=== PATIENT | female | born 1985 | race Caucasian/White ===

== ENCOUNTER 2024-12-05 16:52 | Emergency (ER) | payer MEDICARE, OTHER, SELFPAY ==
[2024-12-05 16:54] VITALS: BP 127/92
--- NOTE | 2024-12-05 17:33 | ED.GENMED ---
History of Present Illness
General
Chief Complaint: Musculo-Skeletal Complaint
Time Seen by Provider: 12/05/24 17:12
History of Present Illness
History of Present Illness:
39-year-old female presents the emergency department for evaluation of left ankle pain after slipping and falling today. 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
undergo surgery next month at [facility]. She is able to bear weight using orthopedic boot
Past History
Past History
ED Past Medical History: Asthma (when sick), HTN (but not on any medication), Seizures and Other (Lyme disease, migraine headaches, Chronic pain, GI bleed, Hiatal hernia, Ulcers, Bartonella, PIC line)
ED Past Surgical History: None
Social History
Tobacco: Non-smoker
Alcohol: None
Personal: Single
Living: with family
Review of Systems
Review of Systems
Allergies reviewed?: Yes
All Other Systems: ROS reviewed and negative except as documented in HPI and ROS
Phy Exam
Physical Exam
Physical Exam:
GEN: Well appearing, NAD, WDWN
HEENT: Oral mucosa moist, no scleral icterus
Cardiac: Regular rate
Lung: No respiratory distress, no tachypnea
MSK: Moderate swelling to the left lateral ankle, normal range of motion, no crepitus
Skin: Good color, no pallor or jaundice, no rashes
Neuro: AO x3, moves all extremities freely
Psych: Calm, cooperative
Course
Orders/Labs/Results
Orders:
Orders
12/05/24 16:59
Ankle, left 3 view CR [CR Ankle - Left Min 3 Views ] Urgent
Comment:
Reason For Exam: pain and swelling
12/05/24 17:33
HYDROmorphone [Dilaudid] 4 mg PO NOW STA
Ondansetron Orally Disint [Zofran Odt (Orally Disintegrating)] 4 mg PO NOW STA
Vital Signs
Initial and Last Documented VS:
Initial Vital Signs
Temp Pulse Resp BP Pulse Ox
98.3 F 98 20 127/92 96
12/05/24 16:54 12/05/24 16:54 12/05/24 16:54 12/05/24 16:54 12/05/24 16:54
Last Documented Vital Signs
Temp Pulse Resp BP Pulse Ox
98.3 F 79 18 125/80 99
12/05/24 16:54 12/05/24 18:55 12/05/24 18:55 12/05/24 18:55 12/05/24 18:55
MDM/Problems Addressed
MDM/Problems Addressed:
X-rays are negative for acute fracture. Likely reaggravation of chronic injury. Recommend outpatient podiatry follow-up
*Pulse Oximetry
SaO2: 96
Oxygen Mode of Delivery: Room air
Patient hypoxic: no
*Critical Care Note
Total Time (30-74mins, 75-104mins- exclusive of procedures): Not Applicable
ED Attending Note
-
Portions of this chart may have been created with voice recognition software.� Occasional wrong word or��sound alike� substitutions may have occurred due to the inherent limitations of voice recognition software.
Discharge Plan
Departure
Patient Disposition: Home (Routine Discharge)
Date of Disposition: 12/05/24
Time of Disposition: 17:33
Patient with high blood pressure during this ER visit?: No
Discharge Problem:
Left ankle sprain
Instructions: Sprain (DC)
Prescriptions:
New
morphine 15 mg tablet
15 mg PO Q8H PRN (Reason: Pain) Qty: 8 0RF
No Action
escitalopram oxalate 10 MG tablet
10 mg PO DAILY Qty: 30 0RF
topiramate 25 MG tablet
25 mg PO BID Qty: 60 0RF
levothyroxine 50 MCG tablet
50 mcg PO DAILY
omeprazole 20 MG capsule,delayed release(DR/EC)
20 mg PO DAILY
diazepam [Valium] 5 MG tablet
5 mg PO .5X DAY
oxycodone myristate [Xtampza ER] 13.5 MG cap,sprinkl,ER12hr(DONT CRUSH)
13.5 mg PO BID
Activity Restrictions/Additional Instructions:
See your nurse healthcare manager for follow up
Interventions
Interventions:
*Risk Screen - Suicide Last Done: 12/05/24 16:54
*General Assessment Last Done: 12/05/24 16:54
*Neglect/Abuse Screening Last Done: 12/05/24 17:57
*ED- Fall Risk Assessment Last Done: 12/05/24 17:58
*ED COVID-19 Vaccine History Last Done: 12/05/24 17:21
*Nursing Disposition Last Done: 12/05/24 17:58
ED-Musculoskeletal Assessment Last Done: 12/05/24 17:47
Discharge Date and Time
Discharge Date/Time: 12/05/24 19:00
Print Language: ESTONIAN
[2024-12-05] MEDS: DILAUDID 4 MG PO (17:42)
[2024-12-05] MEDS: ZOFRAN ODT (ORALLY DISINTEGRATING) 4 MG PO (17:43)
[2024-12-05 18:55] VITALS: BP 125/80
== END 2024-12-05 19:00 | disposition home or self-care (01) ==
LOC: EMR 16:52
PROVIDERS: EMERGENCY PHYSICIAN Emergency Medicine; FAMILY PHYSICIAN Family Medicine
DX: S93.402A Sprain of unspecified ligament of left ankle, initial encounter (principal); W01.0XXA Fall on same level from slipping, tripping and stumbling without subsequent striking against object, initial encounter; J45.909 Unspecified asthma, uncomplicated; G89.29 Other chronic pain
CPT/HCPCS: 99283; 73610